=== PATIENT | male | born 1950 | race Caucasian/White ===

== ENCOUNTER 2024-11-29 08:50 | Outpatient (AMB) | payer MEDICARE, SELFPAY ==
--- NOTE | 2024-11-29 08:54 | A.SPINEOV_ITS ---
Vital Signs 11/29/24 08:59 Height 5 ft 7 in Weight 160 lb BMI 25.1 Intake Visit Reasons: Low back pain Intake Note: Mr. Duarte is here today c/o low back pain. Cardiology Specialist Required: No Allergies Penicillins Allergy (Severe, Verified 11/29/24 09:00) Anaphylaxis Physical Exam Vital Signs: BMI result Body Mass Index 25.1 Assessment & Plan Assessment & Plan (1) Lumbar disc herniation with radiculopathy: Code(s): M51.16 - Intervertebral disc disorders with radiculopathy, lumbar region Category: Medical Plan Dear colleague Thank you for referring Antoni Barrientos to the office today with a chief complaint of back pain radiating to his right leg. HPI: This 74-year-old male developed right hip pain radiating to the front of his knee after a fall over a dog bed 1 year ago. He was in physical therapy since then without much effect. 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 He has been in severe agony. He has been taking prednisone for month. He is on gabapentin Celebrex and Tylenol. He can not sit for any prolonged period of times. The pain is constant. Sneezing increases the pain. He also noticed weakness of his right thigh. Numbness. PMH: Transforaminal lumbar interbody fusion 2020 Medications: alfuzosin, aspirin, Celebrex, gabapentin, lisinopril, metformin, metoprolol, pantoprazole, pioglitazone, rosuvastatin, prednisone Allergies: Penicillin Social history: . Smokes a half pack a day Physical Exam: Pleasant male. Height 5'7 weight 160 lb. Motor exam shows a grade 4/5 weakness of the right iliopsoas muscle. Reflexes are symmetrically intact. Sensory exam is intact. Straight leg raise is negative. Reversed stra ight leg raise is positive on the right. Radiological Studies: MRI of the lumbar spine done at [facility] on 11/06/2024 shows a large disc herniation L2-3 compressing the right L3 nerve root. There is a previous L5-S1 lumbar fusion with adjacent degenerative disc disease and spinal stenosis L4-5 and L3-4. Impression/Plan: This patient is suffering from severe lumbar radiculopathy due to a large disc herniation L2-3 compressing the right L3 nerve root. I offered him a lumbar microdiskectomy L2-3, right-sided approach. He is scheduled for 12/26/2024 Thank you for allowing me to participate in your patients care. total time spent was 50 minutes in counseling ,coordination of plan, personal review of imaging, surgical decision making and subsequent plan Mika Owen MD, PhD Spine Fellowship Trained Neurosurgeon Director, [facility] Coding Level of Care Code New Pt Level 4 (97382) Diagnoses Lumbar disc herniation with radiculopathy M51.16
[2024-11-29 08:59] VITALS: BMI 25.1
--- OUTSIDE RECORDS SUMMARY | 2024-11-29 09:02 | XMS_ITS | Clinical Summary ---
Author Organization [facility] Address [address] [place] [address] Phone Care Team Providers Care Medical Social Worker Name Role Phone Kory Bardales MD Primary Care Provider [phone] Allergies Active Allergy Reactions Criticality Noted Date Comments Penicillins Anaphylaxis High 12/04/2019 Medications lisinopril-hydro CHLOROthiazide (ZESTORETIC) 20-12.5 mg per tablet 1 tablet Active metoprolol succinate (TOPROL-XL) 25 MG 24 hr tablet Take 25 mg by mouth daily. Active rosuvastatin (CRESTOR) 10 MG tablet 1 tablet Active pantoprazole (PROTONIX) 40 MG tablet Take 40 mg by mouth daily. Active aspirin 81 MG EC tablet Take 81 mg by mouth daily. Active metFORMIN (GLUCOPHAGE) 500 MG tablet Take 1,000 mg by mouth daily with breakfast. Active tamsulosin (FLOMAX) 0.4 mg Cap Take 0.4 mg by mouth daily. Active gabapentin (NEURONTIN) 300 MG capsuleIndicatio ns:Lumbar radiculitis TAKE TWO CAPSULES BY MOUTH AT BEDTIME NEEDED 60 capsule 5 1 Active Active Problems Problem Noted Date Diagnosed Date Lumbar radiculopathy 01/16/2020 Social History Tobacco Use Types Packs/Day Years Used Date Smoking Tobacco: Former Cigarettes 0.5 40 0 10/29/1970 - 05/01/2009 Smokeless Tobacco: Never Tobacco Cessation:Counseling Given: No Alcohol Use Standard Drinks/Week Comments Yes 0 (1 standard drink = 0.6 oz pur e alcohol) Education Answer Date Recorded Are you interested in more education? Not on alba e 08/26/2022 Are you concerned about learning? Not on file 08/26/2022 No 08/26/2022 No 08/26/2022 Digital Access Answer Date Recorded No 09/24/2022 No 09/24/2022 No 09/24/2022 Reliable internet access at home? Not on file 09/24/2022 Device with a working camera? Not on file Sex and Gender Information Value Date Recorded Sex Assigned at Male 01/24/2020 9:16 AM EDT Legal Sex Male 4:32 PM EDT Gender Identity Male 01/24/2020 9:16 AM EDT Sexual Orientation Straight 01/24/2020 9: 16 AM EDT Last Filed Vital Signs Vital Sign Reading Time Taken Comments Blood Pressure 120/70 01/31/2020 12:46 PM EDT pt reported Pulse - - Temperature 36.4 C (97.6 F) 01/16/2020 12:15 PM EDT Respiratory Rate - - Oxygen Saturation - - Inhaled Oxygen Concentration - - Weight 84.8 kg (187 lb) 07/27/2020 11:5 8 AM EDT patient reported Height 172.7 cm (5' 7.99 ) 12/04/2019 1 1:39 AM EDT Body Mass Index 28.44 12/04/2019 11:39 AM EDT Plan of Treatment Health Maintenance Due Date Last Done Comments Adult Td,Tdap Booster 1952 CREATININE LEVEL 1952 LIPID PANEL 1952 POTASSIUM LEVEL 1952 DEPRESSION SCREENING 1964 SMOKING Hx and SMOKELESS TOBACCO SCREENING 1965 HEPATITIS C SCREENING 1970 COLOGUARD 1997 COLONOSCOPY 1997 COLORECTAL CANCER SCREENING 1997 FIT TEST 1997 FOBT 1997 SIGMOIDOSCOPY 1997 VIRTUAL COLONOSCOPY 1997 PNEUMOCOCCAL VACCINES (50+ years) (1 of 1 - PCV) 2002 ZOSTER VACCINES (1 of 2) 2002 ABDOMINAL AORTIC ANEURYSM (AAA) SCREENING 2017 COVID-19 VACCINE (3 - 2023-2 5 season) 2023 08/01/2020, 07/11/2020 RSV VACCINE (1 - 1-dose 75+ series) 2027 HEPATITIS A VACCINES Aged Out No long er eligible based on patient's age to complete this topic HIB VACCINES Aged Out No longer eligi ble based on patient's age to complete this topic MENINGOCOCCAL VACCINES (ACWY) Aged Out No longer eligible based on patient's age to complete this topic MENINGOCOCCAL VACCINES (B) Aged Out N o longer eligible based on patient's age to complete this topic Medical Devices Not on file Insurance MEDICARE PART A & B Member Subscriber Plan / Payer (Ef fective 2017-Present) Name:Antoni Barrientos Member ID:[id number] Relation to Subscriber:Self Name:Antoni Barrientos Subscriber ID:[id number] Payer ID:[id number] Group ID:Not on file Type:Medicare Address: [place] [employer] [facility] [address] [place] [address] [place] [address] [facility] MEDEX SUPPLEMENT MEDICARE PART A & B [employer] MEDEX SUPPLEMENT MEDICARE PART A & B [employer] MEDEX SUPPLEMENT MEDICARE PART A & B [employer] MEDEX SUPPLEMENT MEDICARE PART A & B [employer] MEDEX SUPPLEMENT MEDICARE PART A & B [employer] MEDEX SUPPLEMENT MEDICARE PART A & B [employer] MEDEX SUPPLEMENT MEDICARE PART A & B [employer] MEDEX SUPPLEMENT MEDICARE PART A & B [employer] MEDEX SUPPLEMENT Care Teams Medical Social Worker Relationship Specialty Start Date End Date Kory Bardales MD [address] [place] [address] 1 [place] [address] PCP - General Internal Medicine 11/15/19 Additional Source Comments The information contained in this document represents components of the legal health record. It is not the complete legal health record.[facility]
== END 2024-11-29 10:05 | disposition home or self-care (01) ==
LOC: HO.HNS 08:50
PROVIDERS: PCP Internal Medicine; Visit Provider Neurological Surgery
DX: M51.16 Intervertebral disc disorders with radiculopathy, lumbar region (principal)
CPT/HCPCS: 99204

== ENCOUNTER → 2024-11-29 08:50 | Outpatient (BNVA) | payer MEDICARE, SELFPAY | PROVIDERS: PCP Internal Medicine; Visit Provider Neurological Surgery | DX: M51.16 Intervertebral disc disorders with radiculopathy, lumbar region (principal) | CPT/HCPCS: 99202 ==

== ENCOUNTER 2024-12-26 07:57 | Day surgery (SDC) | payer MEDICARE, SELFPAY ==
--- OUTSIDE RECORDS SUMMARY | 2024-12-02 12:32 | XMS_ITS | Clinical Summary ---
Author Organization [facility] Address [address] [place] [id number] Phone Care Team Providers Care Dress Operator Name Role Phone Kory Bardales MD Primary Care Provider [phone] Allergies Active Allergy Reactions Criticality Noted Date [...] file Insurance [place] PART A [place] [id number] [facility] MEDEX SUPPLEMENT MEDICARE PART A & B [employer] MEDEX SUPPLEMENT MEDICARE PART A & B [employer] MEDEX SUPPLEMENT MEDICARE PART A & B [employer] MEDEX SUPPLEMENT MEDICARE PART A & B [employer] MEDEX SUPPLEMENT MEDICARE PART A & B [employer] MEDEX SUPPLEMENT MEDICARE PART A & B [employer] MEDEX SUPPLEMENT MEDICARE PART A & B [employer] MEDEX SUPPLEMENT MEDICARE PART A & B [employer] MEDEX SUPPLEMENT Care Teams Dress Operator Relationship Specialty Start Date End Date Kory Bardales MD [address] [place] [address] 1 [place] [address] PCP - General Internal Medicine 11/15/19 Additional Source Comments The information contained in this document represents components of the legal health record. It is not the complete legal health record.[facility]
[2024-12-11 15:28] VITALS: BMI 25.1
--- NOTE | 2024-12-17 12:07 | HO.ANESPROP2 ---
Documented by User: Regina Nielson NP 12/25/24 13:28 HPI - Anesthesia Eval Consult details Narrative: 74yo M for Right L2-3 MicroLumbar discectomy, 12/26/24 Follows [facility] for CAD, HTN, RBBB. Stable at 12/2023 office visit. Updated EKG without change Per note: Noncritical CAD by cath 01/2007 (40% ostial LAD, 50% proximal circumflex and 100% mid RCA with collaterals Steroid exposure: Prednisone 20mg BID PMFSH Active Problems Active Problems: All Active Problems Lumbar disc herniation with radiculopathy (Acute) Past Medical History Medical History (Updated 12/11/24 @ 15:39 by Kaley Montague RN) Sciatica, right side Bilateral hip pain Left leg paresthesias Left hand pain Spinal stenosis Diabetes GERD (gastroesophageal reflux disease) RBBB (right bundle branch block) HLD (hyperlipidemia) CAD (coronary artery disease) HTN (hypertension) Surgical History Surgical History (Updated 12/11/24 @ 15:40 by Kaley Montague RN) Hx of spinal surgery (~2020) Hx of colonoscopy Hx of cardiac catheterization (~2006) Social History Social History (Updated 12/11/24 @ 15:40 by Kaley Montague RN) Are you a primary respiratory care specialist to a significant other at home: No Do you presently have visiting nurse or other home services: No Comment: wears decompression belt Patient Tobacco Use Status: Former Tobacco user Tobacco use type: Cigarette Smoked in Last 30 Days: Yes Use of substances other than those prescribed or required for medical reasons: Yes Substance Use Type: Marijuana Substance Use Frequency: Occasionally Have you been hit, kicked, punched, or otherwise hurt by someone within the past year? If so, by whom?: No Are you DNR?: No Advance Directives: No Advance Directives Information Provided: Yes Advance Directives on File: No Healthcare Proxy: No Meds Allergies Allergy/AdvReac Type Severity Reaction Status Date / Time Penicillins Allergy Severe Anaphylaxis Verified 11/29/24 09:00 Home Medications ?Medication ?Instructions ?Recorded ?Confirmed ?Last Taken ?Type alfuzosin 10 mg tablet,extended 10 mg PO DAILY 12/11/24 12/11/24 12/25/24 History release 24 hr aspirin 81 mg tablet 81 mg PO DAILY 0812/11/24 12/18/24 History celecoxib 200 mg capsule (Celebrex) 200 mg PO DAILY 12/11/24 12/11/24 12/18/24 History gabapentin 300 mg capsule 600 mg PO BEDTIME 12/11/24 12/11/24 12/25/24 History lisinopril 20 1 tab PO DAILY 12/11/24 12/11/24 12/25/24 History mg-hydrochlorothiazide 12.5 mg tablet metformin 500 mg tablet,extended 500 mg PO BID 12/11/24 12/11/24 12/25/24 History release 24 hr metoprolol succinate 25 mg 25 mg PO DAILY 12/11/24 12/11/24 12/26/24 History tablet,extended release 24 hr nitroglycerin 0.4 mg sublingual 0.4 mg sublingual Q5M PRN Chest 12/11/24 12/11/24 Unknown History tablet Pain pantoprazole 40 mg tablet,delayed 40 mg PO DAILY 12/11/24 12/11/24 12/26/24 History release pioglitazone 15 mg tablet 15 mg PO DAILY 12/11/24 12/11/24 12/25/24 History rosuvastatin 40 mg tablet 40 mg PO DAILY 12/11/24 12/11/24 12/25/24 History Exam Height,Weight and Vital Signs: Height 5 ft 7 in Weight 72.575 kg Pertinent Lab Results Pertinent Lab Results: CBC and CMP 09/2024 WNL except mild low Hgb (12.1) and elevated Creat (1.25) Narrative Narrative: EKG 11/2024 SR @ 68 RBBB ECHO 2021 Nml sized LV, nml global systolic LV function. LVEF 60-65%. LV sys wall motion with EF 60-65% Diastolic LV function is nml for age Mild tricuspid regurg with nml pulmo pressures No change from 2013 Assessment and Plan Assessment Anesthesia Assessment: Chart Reviewed Documented by User: Caitlyn Evans MD 12/26/24 09:51 [facility] Past Medical History Medical History (Updated 12/11/24 @ 15:39 by Kaley Montague RN) Sciatica, right side Bilateral hip pain Left leg paresthesias Left hand pain Spinal stenosis Diabetes GERD (gastroesophageal reflux disease) RBBB (right bundle branch block) HLD (hyperlipidemia) CAD (coronary artery disease) HTN (hypertension) Family History Family history of problems with anesthesia: No Surgical History Surgical History (Updated 12/11/24 @ 15:40 by Kaley Montague RN) Hx of spinal surgery (~2020) Hx of colonoscopy Hx of cardiac catheterization (~2006) History of Problems with Anesthesia: No Social History Social History (Updated 12/11/24 @ 15:40 by Kaley Montague RN) Are you a primary respiratory care specialist to a significant other at home: No Do you presently have visiting nurse or other home services: No Comment: wears decompression belt Patient Tobacco Use Status: Former Tobacco user Tobacco use type: Cigarette Smoked in Last 30 Days: Yes Use of substances other than those prescribed or required for medical reasons: Yes Substance Use Type: Marijuana Substance Use Frequency: Occasionally Have you been hit, kicked, punched, or otherwise hurt by someone within the past year? If so, by whom?: No Are you DNR?: No Advance Directives: No Advance Directives Information Provided: Yes Advance Directives on File: No Healthcare Proxy: No Meds Allergies Allergy/AdvReac Type Severity Reaction Status Date / Time Penicillins Allergy Severe Anaphylaxis Verified 11/29/24 09:00 Home Medications ?Medication ?Instructions ?Recorded ?Confirmed ?Last Taken ?Type alfuzosin 10 mg tablet,extended 10 mg PO DAILY 12/11/24 12/11/24 12/25/24 History release 24 hr aspirin 81 mg tablet 81 mg PO DAILY 12/11/24 12/11/24 12/18/24 History celecoxib 200 mg capsule (Celebrex) 200 mg PO DAILY 12/11/24 12/11/24 12/18/24 History gabapentin 300 mg capsule 600 mg PO BEDTIME 12/11/24 12/11/24 12/25/24 History lisinopril 20 1 tab PO DAILY 12/11/24 12/11/24 12/25/24 History mg-hydrochlorothiazide 12.5 mg tablet metformin 500 mg tablet,extended 500 mg PO BID 12/11/24 12/11/24 12/25/24 History release 24 hr metoprolol succinate 25 mg 25 mg PO DAILY 12/11/24 12/11/24 12/26/24 History tablet,extended release 24 hr nitroglycerin 0.4 mg sublingual 0.4 mg sublingual Q5M PRN Chest 12/11/24 12/11/24 Unknown History tablet Pain pantoprazole 40 mg tablet,delayed 40 mg PO DAILY 12/11/24 12/11/24 12/26/24 History release pioglitazone 15 mg tablet 15 mg PO DAILY 12/11/24 12/11/24 12/25/24 History rosuvastatin 40 mg tablet 40 mg PO DAILY 12/11/24 12/11/24 12/25/24 History Exam Airway Mallampati Class: III TM Dist: >3cm Neck ROM: Full Denture: Upper Assessment and Plan Assessment Anesthesia Assessment: Anesthesia Plan Discussed Final Anesthetic Review Family History of Problems with Anesthesia: No History of Problems with Anesthesia: No NPO: Yes ASA Class: III Final Preanesthetic Review: No Changes in Pt Med Stat, Meds/Allgs Chart Reviewed, Consent Obtained/Reviewed and Anes Risks/Benef Reviewed Patient Risk: Intermediate Procedure Risk: Intermediate Anesthetic Plan Anesthetic Plan: GA Disposition: Standard PACU
[2024-12-26] VITALS (9 sets, daily range): BP systolic 94–143; BP diastolic 39–68; PULSE 78–112; RESP 16–20; TEMP 36.3–36.9; O2SAT 92–97; BMI 24.9
--- NOTE | ~2024-12-26 | FL_ITS ---
EXAMINATION: XR FLUOROSCOPY WITH IMAGES CLINICAL INFORMATION: L2-3 microdiscectomy lumbar. COMPARISON: None available. TECHNIQUE: Fluoroscopy provided to: Dr. Owen Fluoroscopy time: 3 seconds DAP: 0.6088 Gycm2 Images: 1 FINDINGS: 1 fluoroscopic spot image of the lateral lumbar spine taken during microdiscectomy L2-3. Please refer to the full operative report for details. FL/FL guidance in OR IMPRESSION: Fluoroscopic guidance. Electronically signed by: Omer Fuentes MD 12/26/2024 11:15 AM EDT
[2024-12-26] MEDS: Lactated Ringers 1,000 ML 100 ML IVCONT (08:20)
[2024-12-26 08:45] LABS: Glucose, Whole Blood 123 mg/dL (60-115)
--- NOTE | 2024-12-26 08:59 | MHC.SHP ---
Pre-Procedural Eval Section A - 24 Hr Update-Section A only Date of Service: 12/26/24 The patient is an INPATIENT: No Section B - Complete if H&P > 30 days Chief Complaint: Intervertebral disc disorders with radiculopathy, Details of Present Illness: Right leg pain Allergies: Allergies Allergy/AdvReac Type Severity Reaction Status Date / Time Penicillins Allergy Severe Anaphylaxis Verified 11/29/24 09:00 Review of Systems Sugical H&P ROS: Negative: Constitution, Cardiovascular, Respiratory, Neurological, Psychiatric, Hem-Onc, Allergic/Immunologic, Gastrointestinal, Genitourinary, Musculoskeletal, Integumentary, Endocrine and Eyes/Ears/Nose/Throat Exam Surgical H&P Exam: Normal: HEENT, Normal: Heart, Normal: Lungs, Normal: Extremities, Normal: Abdomen, Normal: Skin and Normal: Neurological (Awake, alert) Plan Diagnosis/Plan: Unchanged I have reviewed the history and physical and performed a pertinent physical examination on my patient. No changes have occurred unless specified. Right L2-3 microdiskectomy Time Spent With Patient Time: Total time managing care of this patient today ____ minutes.
--- NOTE | 2024-12-26 10:08 | P.DS_ITS ---
DS: Providers Provider Date of Service: 12/26/24 Date of discharge: 12/27/24 Primary care physician: Kory Bardales MD Admitting clinician: Mika wOen DS: Diagnosis Discharge Diagnosis (1) Lumbar disc herniation with radiculopathy: Status: Acute (2) Incidental durotomy: Status: Acute DS: Summary Hospital Course Hospital Course: Patient was admitted for elective L2-3 diskectomy. He underwent his procedure, had an incidental durotomy so was kept in the hospital 1 night overnight flat in order to assist with closure in healing of the dura. A Olmedo was kept in place so the patient would not need to get up to go to the bathroom. He was brought him to the nursing unit after he recovered and anesthesia. His 1st postoperative night was uneventful. He was having trouble with the catheter leaking so at his request it was removed. He had no trouble voiding thereafter. We allowed him to get up and raise his head of bed up early on his 1st postoperative morning. He had no headaches and his wound was not leaking. His pain was better, he was neurologically intact and had met all criteria for discharge so we sent him home. He will follow up in 10 days for suture removal. All pertinent discharge instructions were discussed. Time Attestation Total time managing care of this patient today: 6 mintues. Discharge Coordination Time (in mins): 6 Quality: Safe Use of Opioids Does Pt have an Active Cancer Diagnosis on the Problem List?: No Quality: Stroke Does the patient have a stroke diagnosis?: No Physical Exam Vital Signs: Vital Signs: Last Vital Signs Temp 98.5 F 12/26/24 08:04 Pulse 78 12/26/24 08:04 Resp 20 12/26/24 08:04 BP 132/68 12/26/24 08:04 Pulse Ox 96 12/26/24 08:04 O2 Del Method Room Air 12/26/24 08:04 BMI result Body Mass Index 24.9 DS: Data Data Completed and Pending Labs on day of discharge: Laboratory Results - last 24 hr 12/26/24 08:40 POC Glucose 123 H Discharge Plan Discharge Patient Disposition: Home, Self-Care Referrals: Kory Bardales MD [Primary Care Provider, Internal Medicine] - 1 Week Discharge Medications: New docusate sodium [Colace] 100 mg capsule 100 mg PO BID Qty: 20 0RF oxycodone 5 mg tablet 5 mg PO Q4H PRN (Reason: pain) Qty: 20 0RF Rx Instructions: Partial Fill upon patient request. Continued celecoxib [Celebrex] 200 mg Capsule 200 mg PO DAILY pioglitazone 15 mg tablet 15 mg PO DAILY lisinopril-hydrochlorothiazide 20-12.5 mg tablet 1 tab PO DAILY pantoprazole 40 mg tablet,delayed release (DR/EC) 40 mg PO DAILY nitroglycerin 0.4 mg Tablet, Sublingual 0.4 mg SUBLINGUAL Q5M PRN (Reason: Chest Pain) Rx Instructions: do not exceed 3 doses per episode gabapentin 300 mg capsule 600 mg PO BEDTIME metoprolol succinate 25 mg tablet extended release 24 hr 25 mg PO DAILY metformin 500 mg tablet extended release 24 hr 500 mg PO BID rosuvastatin 40 mg tablet 40 mg PO DAILY alfuzosin 10 mg tablet extended release 24 hr 10 mg PO DAILY Held aspirin 81 mg Tablet 81 mg PO DAILY Hold Instructions: Resume on 01/02/25. You may resume aspirin 1 week after surgery Discharge Orders: Discharge Order (Routine); Ordered 12/27/24 Ordered By: Paul De La Garza Diet: Advance to usual diet Activity on Discharge: As tolerated Activity Restrictions/Additional Instructions: After your spinal surgery we ask you to observe the following restrictions/guidelines: YOU HAD A SMALL SPINAL FLUID LEAK SEEN AT THE TIME OF SURGERY. IT IS NORMAL TO EXPERIENCE MILD HEADACHES WHEN THIS HAPPENS. IF YOU EXPERIENCE SEVERE HEADACHES PLEASE CALL OUR OFFICE TO UPDATE US. USUALLY IT WILL GO AWAY IF YOU STAY FLAT IN BED FOR A DAY. IF YOU EXPERIENCE ANY LEAKING FROM YOUR WOUND WHICH LOOKS LIKE CLEAR WATER, WE ASK THAT YOU CALL US RIGHT AWAY. [phone] Activity: It is normal to feel some discomfort as you increase your activity, but that will improve with time. We ask you avoid heavy lifting or acitivities that cause pain. As a general rule, 8lbs is a safe limit for lifting right after surgery. Walk as much as you feel comfortable but not to exhaustion. You will feel extra tired the first few days after surgery. Stay well hydrated. It is OK to walk up and down stairs You may return to driving when you are off narcotics (such as vicodin, oxycodone, dilaudid, etc), and you are back to normal functional capacity. If you have any concerns please check with office before driving. Return to work is specific to each patient and each surgery, so please speak with your doctor/PA at first follow up. Please bring paperwork such as FMLA at that time if you need it filled out. Medications: You may resume aspirin 1 week after surgery For optimum pain control, it is best to start with a combination of 500 mg of Tylenol every 4 hours with 600 mg of Motrin every 8 hours, and use narcotics as needed in between for breakthrough pain. We will give you a short supply of narcotics after surgery (usually one weeks worth). If you need more please call the office but do not use more than prescribed. You will need to give our office 48 hours notice if you need narcotics refilled and we do not fill narcotics on weekends or evenings. If you are on a narcotic, it is a good idea to take a stool softener such as colace or senna to avoid constipation If you take blood thinner such as aspirin, Plavix, Coumadin, Effient, Eliquis etc for conditions such as Afib, DVT, Pulmonary embolus, coronary disease, stents etc please speak with your surgeon about specific details as to when you can resume these medications. Follow up: Please call the office, , after surgery to arrange a 3 week follow up for wound check. Wound Care: You may remove your dressing on the first day after surgery. ?You may ?leave open to air. Please do not remove the steri strips underneath. they will fall off on their own in one week. IT IS NORMAL FOR THE WOUND TO OOZE OR BE BLOODY FOR A FEW DAYS AFTER SURGERY. ?IF THIS HAPPENS JUST PLACE NEW DRESSING OVER IT TO AVOID STAINING CLOTHES. You may shower on post op day # 1 We ask that you do not let the water soak the wound. If it does get wet, just towel dry lightly. Please do not scrub your incision or place any type of chemical/ointment on the wound. No tub baths, pools or jacuzzis for one month. If you have any leaking or redness from your wound, or fevers, please call office Print Language: Vietnamese
--- NOTE | 2024-12-26 11:36 | P.OP_ITS ---
Operative Note Operative Note Date of Service: 12/26/24 Narrative: Preoperative diagnosis: Right lumbar radiculopathy due to disc herniation Postoperative diagnosis: Same Procedure: Right L2-3 lumbar microdiskectomy with microscope Surgeon: Mika Owen MD, PhD Ecommerce Project Manager: rossi Flowers This patient is suffering from a lumbar radiculopathy due to a disc herniation L2-3. The MRI shows a large extruded disc herniation behind the body of L3 and medial from the nerve root under the thecal sac. The patient was offered a lumbar microdiskectomy to decompress the nerve root. The procedure complications were explained. The patient was consented. The patient was brought to the operating room and endotracheally intubated. The patient was turned in a prone position on the Jamil frame. Prepping and draping was done followed by time-out. A mid lumbar incision was made followed by release of the paravertebral muscles on the right side to expose the L2-3 interspace. An intraoperative x-rays obtained to confirm the correct level. The microscope was brought in. A L2-3 laminotomy was done followed by opening of the flavum ligament. The L3 nerve root was identified and retracted medially to expose the L2-3 disc space. I was expected find a large disc fragment, which I did not find. I retracted the nerve root more medial and maybe I was able to palpate a abnormality behind the body of L3. I tried to release the medial part of the L3 nerve root, which was very stuck to that area. Small durotomy occurred. I did not further explored that area as the nerve root was well decompressed and I thought this would only cause more harm than good to the patient. The durotomy was covered with a piece of DuraGen followed by tissue seal. Hemostasis was done. The microscope was removed. Marcaine was injected intramuscularly.The incision was closed in 3 layers with a running nylon for the skin. An op-site were taken there was used to cover the incision. All sponge and needle counts were correct. Patient was extubated and transported in stable condition to recovery room. this procedure was done with the aid of a physician assistant professor of religion who performed the initial exposure until the microscope was brought in and performed the closure of the incision. Anesthesia: General Blood loss: 10 mL Complications: Incidental durotomy Specimen: None Surgical time: 60 minutes Disposition: Discharge home
--- NOTE | 2024-12-26 12:54 | PHA.MEDREC ---
Addendum entered by Marcial Garcia, Axel 12/26/24 13:26: med rec checked by [facility] Original Note: Pharmacy Consult ? Medication Reconciliation Pharmacy has reviewed the medication reconciliation done by nursing. Claims match med list.
[2024-12-26] MEDS: oxyCODONE HCl Immed Release 5 MG TABLET 10 MG PO ×2 (13:58→22:39)
[2024-12-26 14:11] LABS: Glucose, Whole Blood 122 mg/dL (60-115)
[2024-12-26 16:05] LABS: Glucose, Whole Blood 141 mg/dL (60-115)
[2024-12-26] MEDS: oxyCODONE HCl Immed Release 5 MG TABLET PO (18:40)
[2024-12-26 20:32] LABS: Glucose, Whole Blood 154 mg/dL (60-115)
[2024-12-26 21:45] LABS: Glucose, Whole Blood 124 mg/dL (60-115)
[2024-12-27] MEDS: oxyCODONE HCl Immed Release 5 MG TABLET 10 MG PO ×3 (02:42→10:34)
[2024-12-27 03:14] VITALS: BP 110/53; PULSE 77; RESP 18; TEMP 37; O2SAT 94
[2024-12-27] MEDS: Metoprolol Succinate ER 25 MG TAB.ER.24H PO (07:04)
[2024-12-27 07:21] VITALS: BP 116/55; PULSE 71; RESP 16; TEMP 36.7; O2SAT 93
[2024-12-27 07:31] LABS: Glucose, Whole Blood 113 mg/dL (60-115)
--- NOTE | 2024-12-27 08:14 | HO.POSTANES ---
Post Anesthesia Evaluation Post Anesthesia Evaluation Date of Service: 12/27/24 Vital Signs: Vital Signs Temp Pulse Resp BP Pulse Ox O2 Del Method 12/27/24 07:21 98.1 F 71 16 116/55 L 93 Room Air 12/27/24 03:14 98.6 F 77 18 110/53 L 94 Room Air Anesthesia: General Mental Status: Awake Pain Control: Satisfactory Nausea/Vomiting: None Hydration: Adequate Anesthesia-Related Issues: No Anes. Related Issues
--- NOTE | 2024-12-27 08:50 | HO.NEURO.PN ---
Neurosurgery Operative Note Date of Service: 12/27/24 Narrative: Postop day 1., L2-3 diskectomy with incidental durotomy Patient reports significant improvement in his right leg pain. Denies any headaches. He was allowed to get out of bed start sitting up. Had no problems with leaking from his wound. Is diet was advanced without any problem. His catheter was taken out and he has been avoiding multiple times without issues. Afebrile, vital signs stable Physical exam: Patient is awake alert oriented no acute distress sitting at the bedside eating breakfast, strength in his bilateral lower extremities is full, his wound is clean dry with no signs of CSF leak. Impression: Postop day 1. L2-3 diskectomy with incidental durotomy, if patient kept flat overnight, allowed to get up this morning, has had no headaches, his wound is not leaking, his strength is full and his pain in his leg is better. He is voiding on his own. He will walk the hallways with nursing staff but we will anticipate discharging him home. Patient will follow up in 10 days for suture removal. I will have my office staff contact him for that visit. All pertinent discharge instructions were discussed. Patient is aware if he develops a headache he should come back to the office so we can evaluate him. All thefollowing discussed with Dr. Owen who agrees with the plan as outlined above.
--- NOTE | 2024-12-27 09:15 | MHC.CM.PN ---
Patient lives in a home w/ his . Functionally independent. Denies use of DME or services. PCP Kory Bardales in [place] Reports he has an HCP listing his , [place] and daughter as HCA's. Copy requested. DP: Medically cleared for dc home self care. to transport. RN aware.
== END 2024-12-27 10:39 | disposition home or self-care (01) ==
LOC: HO.SSS 10:09 → HO.S3 12:13
PROVIDERS: Neurological Surgery; PCP Internal Medicine; Visit Provider Physician Assistant
PROC: (CPT 63030; principal; 2024-12-26 10:50)
DX: M51.16 Intervertebral disc disorders with radiculopathy, lumbar region (principal); G97.41 Accidental puncture or laceration of dura during a procedure; M51.369 Other intervertebral disc degeneration, lumbar region without mention of lumbar back pain or lower extremity pain; M54.50 Low back pain, unspecified; Z91.81 History of falling; Z98.1 Arthrodesis status; I25.10 Atherosclerotic heart disease of native coronary artery without angina pectoris; I10 Essential (primary) hypertension; E78.5 Hyperlipidemia, unspecified; I45.10 Unspecified right bundle-branch block; E11.9 Type 2 diabetes mellitus without complications; Z79.82 Long term (current) use of aspirin; Z79.84 Long term (current) use of oral hypoglycemic drugs; Z79.899 Other long term (current) drug therapy; Z88.0 Allergy status to penicillin; Z87.891 Personal history of nicotine dependence
CPT/HCPCS: 63030; 82947; C1763; C9250; J0131; J1885; J2003; J2405; J2704; J3010; J3374

== ENCOUNTER → 2024-12-26 07:57 | Outpatient (BNV) | payer MEDICARE, SELFPAY | PROVIDERS: PCP Internal Medicine; Visit Provider Neurological Surgery | DX: M51.16 Intervertebral disc disorders with radiculopathy, lumbar region (principal) | CPT/HCPCS: 63030; 99024; 99499 ==

== ENCOUNTER 2025-01-06 10:56 | Outpatient (AMB) | payer MEDICARE, SELFPAY ==
--- NOTE | 2025-01-06 11:00 | HO.SPINEOV ---
Intake Visit Reasons: suture removal Intake Note: Mr. Duarte is here today to have his suture removal. Advertising Designer Required: No Allergies Penicillins Allergy (Severe, Verified 01/06/25 11:01) Anaphylaxis Assessment & Plan Assessment & Plan (1) S/P lumbar microdiscectomy: Code(s): Z98.890 - Other specified postprocedural states Category: Medical Plan Procedure: Right L2-3 lumbar microdiskectomy with microscope Antoni comes in today for suture removal. He underwent right L3-4 lumbar decompression with incidental durotomy on 12/26/24. His incision site was closed with a single running suture. He reports that his pain has not resolved since the surgery. He did state that he had 1-2 days directly after surgery we had relief of his pain, then it subsequent return of his pain. He reports that he has been taking the pain medication that was prescribed of surgery, however he did report that cannabis seems more effective for his pain control. We discussed the postoperative healing course at length, and I answered any questions that he had regarding this. He did express that he was hoping to see Dr. Owen today instead of this inspector automatic typewriter as he wanted to ask him questions as to why he is still in pain. I did answer the questions that he had as best as I could. No new neurological deficits. The patient ambulates well and rises from a seated position without difficulty. His incision site was closed with a single running suture on the skin surface. I removed this during this encounter today. He tolerated the removal well. I would like to follow up with Kofi again in 3 weeks for his 1st actual postop visit to ensure he is making progress. Calvin Owen MD,PhD [facility] Coding Level of Care Code Global (75536) Diagnoses S/P lumbar microdiscectomy Z98.890
--- OUTSIDE RECORDS SUMMARY | 2025-01-06 13:22 | XMS_ITS | Clinical Summary ---
Author Organization [facility] Address [address] [place] [address] Phone Care Team Providers Care Radio Artist Name Role Phone Kory Bardales MD Primary Care Provider [phone] Allergies Active Allergy Reactions Criticality Noted Date [...] 2002 ABDOMINAL AORTIC ANEURYSM (AAA) SCREENING 2017 INFLUENZA VACCINE (#1) 2024 COVID-19 VACCINE (3 - 2024-2 6 season) 2024 08/01/2020, 07/11/2020 RSV VACCINE (1 - 1-dose [...] file Insurance MEDICARE PART A & B [place] [employer] MEDEX SUPPLEMENT MEDICARE PART A & B [place] MEDEX SUPPLEMENT MEDICARE PART A & B [place] MEDEX SUPPLEMENT MEDICARE PART A & B [place] MEDEX SUPPLEMENT MEDICARE PART A & B [place] MEDEX SUPPLEMENT MEDICARE PART A & B [place] MEDEX SUPPLEMENT MEDICARE PART A & B [place] MEDEX SUPPLEMENT MEDICARE PART A & B [facility] MEDEX SUPPLEMENT MEDICARE PART A & B [place] MEDEX SUPPLEMENT Care Teams Radio Artist Relationship Specialty Start Date End Date Kory Bardales MD [address] [place] [address] [address] [place] [address] PCP - General Internal Medicine 11/15/19 Additional Source Comments The information contained in this document represents components of the legal health record. It is not the complete legal health record.[facility]
== END 2025-01-06 11:29 | disposition home or self-care (01) ==
LOC: HO.HNS 10:57
PROVIDERS: PCP Internal Medicine; Visit Provider Physician Assistant
DX: Z98.890 Other specified postprocedural states (principal)
CPT/HCPCS: 99024

== ENCOUNTER → 2025-01-06 10:56 | Outpatient (BNVA) | payer MEDICARE, SELFPAY | PROVIDERS: PCP Internal Medicine; Visit Provider Physician Assistant | DX: Z48.02 Encounter for removal of sutures (principal) | CPT/HCPCS: 99212 ==

== ENCOUNTER 2025-01-30 10:44 | Outpatient (AMB) | payer MEDICARE, SELFPAY ==
--- NOTE | 2025-01-30 11:05 | A.SPINEOV_ITS ---
Intake Visit Reasons: 1st post op Intake Note: Mr. Duarte is here today for his 1st post op. Jackaroo Required: No Allergies Penicillins Allergy (Severe, Verified 01/06/25 11:01) Anaphylaxis Assessment & Plan Assessment & Plan (1) S/P lumbar microdiscectomy: Code(s): Z98.890 - Other specified postprocedural states Category: Surgical Plan Procedure: Right L2-3 lumbar microdiskectomy Antoni comes in today for his 1st postoperative visit after having a right-sided L2-3 lumbar microdiskectomy completed by Dr. Owen. He reports that overall his pain has improved since surgery, however he still is dealing with quite a bit of low back pain sitting for prolonged periods of time, and also still having some degree of right-sided leg pain. He has been attempting to take ibuprofen/Tylenol at home, however states that his PCP informed him that he has some issues with his liver, so he is concerned about taking Tylenol. I did review his labs that were sent over by the primary care office which seem to indicate that he had an CHIQUITA with elevated creatinine levels. His liver function tests appeared WNL. I encouraged him to stop his NSAID medication, and start taking Tylenol 1,000mg TID. I also discussed a muscle relaxer for him to take throughout the day to help mitigate some of his daytime muscle cramps relating to his symptoms. No new neurological deficits. The patient ambulates well and rises from a seated position without difficulty. His posterior incision site is closed and well healing. I will send in a prescription for baclofen 5 mg t.i.d. as needed for muscle spasms to the patient's pharmacy. He understands that this medication may sedate him, and he should not take a while driving. I would like to follow up with the patient again in 6 weeks for his 2nd postoperative visit. Calvin Owen MD,PhD [facility] Medications: New baclofen 5 mg PO TID PRN 30 tabs 0RF muscle spasm Coding Level of Care Code Global (74348) Diagnoses S/P lumbar microdiscectomy Z98.890
--- OUTSIDE RECORDS SUMMARY | 2025-01-30 12:32 | XMS_ITS | Clinical Summary ---
Author Organization [facility] Address [address] [place] [address] Phone Care Team Providers Care Curriculum And Instruction Director Name Role Phone Kory Bardales MD Primary Care Provider [phone] Allergies Active Allergy Reactions Criticality Noted Date [...] file Insurance MEDICARE PART A & B [place] [employer] MEDEX SUPPLEMENT MEDICARE PART A & B [place] MEDEX SUPPLEMENT MEDICARE PART A & B [place] MEDEX SUPPLEMENT MEDICARE PART A & B [place] MEDEX SUPPLEMENT MEDICARE PART A & B [place] MEDEX SUPPLEMENT MEDICARE PART A & B [place] MEDEX SUPPLEMENT MEDICARE PART A & B [place] MEDEX SUPPLEMENT MEDICARE PART A & B [facility] MEDEX SUPPLEMENT Member Subscriber [facility] / [facility] Name:Antoni Barrientos Relation to Subscriber:Self Name:Antoni Barrientos Payer ID:[id number] (NAIC) Type:Indemnity Address: [address] [place] [address] MEDICARE PART A & B [employer]UE [employer]OSS MEDEX SUPPLEMENT Care Teams Curriculum And Instruction Director Relationship Specialty Start Date End Date Kory Bardales MD [address] [place] [address] [address] [place] [address] PCP - General Internal Medicine 11/15/19 Additional Source Comments The information contained in this document represents components of the legal health record. It is not the complete legal health record.[facility]
== END 2025-01-30 11:32 | disposition home or self-care (01) ==
LOC: HO.HNS 10:45
PROVIDERS: PCP Internal Medicine; Visit Provider Physician Assistant
DX: Z98.890 Other specified postprocedural states (principal)
CPT/HCPCS: 99024

== ENCOUNTER → 2025-01-30 10:44 | Outpatient (BNVA) | payer MEDICARE, SELFPAY | PROVIDERS: PCP Internal Medicine; Visit Provider Physician Assistant | DX: Z47.89 Encounter for other orthopedic aftercare (principal); Z98.890 Other specified postprocedural states | CPT/HCPCS: 99212 ==

== ENCOUNTER 2025-03-13 10:40 | Outpatient (AMB) | payer MEDICARE, SELFPAY ==
--- NOTE | 2025-03-13 10:54 | HO.SPINEOV ---
Intake Visit Reasons: 2nd post op Intake Note: Mr. Duarte is here today for his 2nd post op. Practice Office Associate Required: No Allergies Penicillins Allergy (Severe, Verified 01/06/25 11:01) Anaphylaxis Assessment & Plan Assessment & Plan (1) S/P lumbar microdiscectomy: Code(s): Z98.890 - Other specified postprocedural states Category: Surgical Plan Procedure: Right L2-3 lumbar microdiskectomy Antoni comes in today for his 2nd postoperative visit after having a right-sided L2-3 lumbar microdiskectomy completed by Dr. wOen. He reports that he has continued to see improvements in his pain with increased activity since his surgery. He most recently was able to bring in wood for the winter from his home, and only reports mild low back discomfort after doing this. He did ask if we think physical therapy could be beneficial for him. I do think that he is relatively deconditioned from his preoperative pain and surgery, and that physical therapy could be very helpful for him. He is still taking the occasional kyxg-gbo-svzlalj medication and did try that I sent in for him however he did not see much symptom improvement with it so he stopped taking it. We discussed the postoperative healing course and I answered any questions that he had. No new neurological deficits. The patient ambulates well and rises from a seated position without difficulty. His posterior incision site is closed and well healing. I would like to send Antoni for a course of physical therapy and having follow up with us after physical therapy if he continues to have discomfort/pain. Calvin Owen MD,PhD [facility] Orders: Orders PT Evaluation and Treatment Today Z98.890 - Other specified postprocedural states Coding Level of Care Code Global (38476) Diagnoses S/P lumbar microdiscectomy Z98.890
--- OUTSIDE RECORDS SUMMARY | 2025-03-13 13:07 | XMS_ITS | Clinical Summary ---
Author Organization [facility] Address [address] [place] [address] Phone Care Team Providers Care Loss Prevention And Safety Manager Name Role Phone Kory Bardales MD Primary Care Provider [phone] Allergies Active Allergy Reactions Criticality Noted Date [...] on patient's age to complete this topic IPV VACCINES Aged Out No longer eligi ble based on patient's age to complete this topic MENINGOCOCCAL VACCINES (ACWY) Aged Out No longer eligible based on patient's age to complete this topic MENINGOCOCCAL VACCINES (B) Aged Out N o longer eligible based on patient's age to complete this topic Medical Devices Not on file Insurance MEDICARE PART A & B Quture MEDEX SUPPLEMENT MEDICARE PART A & B Quture MEDEX SUPPLEMENT MEDICARE PART A & B Quture MEDEX SUPPLEMENT MEDICARE PART A & B Quture MEDEX SUPPLEMENT MEDICARE PART A & B Quture MEDEX SUPPLEMENT MEDICARE PART A & B Quture MEDEX SUPPLEMENT MEDICARE PART A & B [employer] [place] MEDEX SUPPLEMENT MEDICARE PART A & B Quture MEDEX SUPPLEMENT MEDICARE PART A & B [employer] [place] CROSS MEDEX SUPPLEMENT Care Teams Loss Prevention And Safety Manager Relationship Specialty Start Date End Date Kory Bardales MD [address] [place] [address] [address] [place] [address] PCP - General Internal Medicine 11/15/19 Additional Source Comments The information contained in this document represents components of the legal health record. It is not the complete legal health record.[facility]
== END 2025-03-13 11:51 | disposition home or self-care (01) ==
LOC: HO.HNS 10:40
PROVIDERS: PCP Internal Medicine; Visit Provider Physician Assistant
DX: Z98.890 Other specified postprocedural states (principal)
CPT/HCPCS: 99024

== ENCOUNTER → 2025-03-13 10:40 | Outpatient (BNVA) | payer MEDICARE, SELFPAY | PROVIDERS: PCP Internal Medicine; Visit Provider Physician Assistant | DX: M54.50 Low back pain, unspecified (principal); Z98.890 Other specified postprocedural states | CPT/HCPCS: 99212 ==